=== PATIENT | female | born 1955 | race Native Hawaiian/Other Pacific Islander ===

== ENCOUNTER 2020-02-04 09:42 | Outpatient (CLI) | payer OTHER, MEDICARE | END 2020-02-04 23:31 | disposition home or self-care (01) | LOC: RAD 09:42 | DX: E55.9 Vitamin D deficiency, unspecified (principal); E56.8 Deficiency of other vitamins; M06.4 Inflammatory polyarthropathy; M25.552 Pain in left hip; M85.89 Other specified disorders of bone density and structure, multiple sites; Z68.31 Body mass index [BMI] 31.0-31.9, adult ==

== ENCOUNTER 2021-03-22 09:39 | Outpatient (CLI) | payer OTHER, MEDICARE | END 2021-03-22 19:00 | disposition home or self-care (01) | LOC: RAD 09:39 | PROVIDERS: ATTEND Nurse Practitioner Family | DX: M06.4 Inflammatory polyarthropathy (principal); M19.041 Primary osteoarthritis, right hand; M19.042 Primary osteoarthritis, left hand; M19.072 Primary osteoarthritis, left ankle and foot ==

== ENCOUNTER 2022-07-25 10:27 | Outpatient (CLI) | payer OTHER, MEDICARE | END 2022-07-25 18:58 | disposition home or self-care (01) | LOC: RESP 10:27 | PROVIDERS: ATTEND Nurse Practitioner Family | DX: E55.9 Vitamin D deficiency, unspecified (principal); M06.4 Inflammatory polyarthropathy; M19.042 Primary osteoarthritis, left hand; M81.0 Age-related osteoporosis without current pathological fracture; R06.02 Shortness of breath ==